=== PATIENT | male | born 2000 | race Two or more races ===

== ENCOUNTER 2022-09-09 19:30 | Emergency (ER) | payer BC, OTHER ==
[~2022-09-09] VITALS: Ht 172.7 cm; Wt 80.0 kg
[2022-09-09 20:11] LABS: Basophils # (auto) 0.1 10 ^3/uL (0-0.2); Basophils % (auto) 0.4 % (0.0-2.0); Eosinophils # (auto) 0 10 ^3/uL (0-0.8); Eosinophils % (auto) 0.1 % (0.0-7.0); Hematocrit 42.6 % (41.0-53.0); Hemoglobin 14.8 g/dL (13.5-17.5); Lymphocytes # (auto) 1.8 10 ^3/uL (0.4-5.4); Lymphocytes % (auto) 11.5 % (10.0-50.0); Mean Corpuscular Hemoglobin 31.3 pg (28.0-32.0); Mean Corpuscular Hgb Conc. 34.8 g/dL (32.0-36.0); Monocytes # (auto) 0.6 10 ^3/uL (0-1.3); Monocytes % (auto) 3.8 % (0.0-12.0); Neutrophils # (auto) 13.1 10 ^3/uL (1.6-8.6); Neutrophils % (auto) 84.2 % (37.0-80.0); Red Blood Cells 4.74 10^6/uL (4.5-5.90); Red Cell Distribution Width 12.4 % (11.8-14.3); White Blood Cell 15.5 10^3/uL (4.4-10.8)
[2022-09-09] MEDS ORDERED: IOHEXOL 300 MG/ML 100ML BOTTLE IJ ONE (20:34)
[2022-09-09 20:36] LABS: BUN/Creatinine Ratio 14.8 (10.0-20.0); Calcium 8.6 mg/dL (8.5-10.1)
[2022-09-09 20:51] LABS: Potassium 2.9 mmol/L (3.5-5.1)
[2022-09-09] MEDS ORDERED: ONDANSETRON HCL 4 MG/2 ML VIAL IV ONE (21:45)
[2022-09-09] MEDS ORDERED: HYDROmorphone HCL 2 MG/ML VL/or syr IV ONE (22:15)
[2022-09-09 22:18] VITALS: BP 120/78
== END 2022-09-09 22:15 | disposition short-term general hospital (02) ==
LOC: ER 19:30 → EDBD 19:30 → ER 22:15
DX: S36.113A Laceration of liver, unspecified degree, initial encounter (principal); J98.2 Interstitial emphysema; K66.8 Other specified disorders of peritoneum; V89.2XXA Person injured in unspecified motor-vehicle accident, traffic, initial encounter; Y93.I9 Activity, other involving external motion; Y92.820 Desert as the place of occurrence of the external cause; Y99.8 Other external cause status
CPT/HCPCS: 36415; 70450; 71260; 72125; 74177; 80048; 85025; 96374; 96375; 99285; J1170; J2405; Q9967